=== PATIENT | female | born 1995 | race African-American/Black ===

== ENCOUNTER 2016-07-19 11:06 | Emergency (ER) | payer MEDICARE ==
[~2016-07-19] VITALS: Ht 165.1 cm; Wt 77.2 kg
[~2016-07-19 11:06] MED LIST: CALC-1232 GT; FERR-43 PO; PREN-88 PO
[2016-07-19 11:18] VITALS: BP 99/67
[2016-07-19] MEDS ORDERED: CEPH500T PO (11:18)
[2016-07-19] MEDS ORDERED: SULF1TAB47 PO (11:18)
== END 2016-07-19 12:08 | disposition home or self-care (01) ==
LOC: ER 11:48
DX: L02.411 Cutaneous abscess of right axilla (principal); M79.661 Pain in right lower leg; R03.0 Elevated blood-pressure reading, without diagnosis of hypertension; F17.210 Nicotine dependence, cigarettes, uncomplicated
CPT/HCPCS: 99283

== ENCOUNTER 2016-07-28 17:11 | Emergency (ER) | payer MEDICARE ==
[~2016-07-28] VITALS: Ht 165.1 cm; Wt 82.0 kg
[~2016-07-28 17:11] MED LIST changes: -CALC-1232 GT; +CEPH500T PO; -FERR-43 PO; -PREN-88 PO; +SULF1TAB47 PO
[2016-07-28 17:28] VITALS: BP 134/80
== END 2016-07-28 22:56 | disposition left against medical advice (07) ==
LOC: ER 22:49
DX: L02.415 Cutaneous abscess of right lower limb (principal); Z53.21 Procedure and treatment not carried out due to patient leaving prior to being seen by health care provider

== ENCOUNTER 2016-12-25 04:43 | Emergency (ER) | payer MEDICARE ==
[~2016-12-25] VITALS: Ht 165.1 cm; Wt 82.0 kg
[2016-12-25 08:44] LABS: CLARITY URINE CLOUDY (CLEAR); COLOR URINE YELLOW (YELLOW); GLUCOSE URINE NEGATIVE (NEGATIVE); KETONES URINE NEGATIVE (NEGATIVE); LEUKOCYTE ESTERASE URINE NEGATIVE (NEGATIVE); NITRITE URINE NEGATIVE (NEGATIVE); OCCULT BLOOD URINE NEGATIVE (NEGATIVE); PH URINE 6.5 (4.5-8.0); PROTEIN URINE NEGATIVE (NEGATIVE); SPECIFIC GRAVITY URINE 1.025 (1.005-1.030)
[2016-12-25 09:04] LABS: BASOPHILS % 0.6 % (0.0-2.0); EOSINOPHILS % 2.2 % (0.0-5.0); HEMATOCRIT. 35.2 % (36.0-48.0); HEMOGLOBIN. 11.8 g/dL (12.0-16.0); LYMPHOCYTES % 25.7 % (20.0-50.0); MEAN CORPUSCULAR HEMOGLOBIN 30.1 pg (28.0-32.0); MEAN CORPUSCULAR VOLUME 89.6 fL (81.0-99.0); MEAN PLATELET VOLUME 6.8 fl (7.4-10.4); NEUTROPHILS % 64.5 % (40.0-76.0); PLATELET 367 x1000/uL (130-400); RED BLOOD CELL COUNT 3.92 mill/uL (4.2-5.4); RED CELL DISTRIBUTION WIDTH 12.7 % (11.6-14.6)
[2016-12-25 09:12] LABS: CHLORIDE 103 mEq/L (98-107)
[2016-12-25 09:21] LABS: CARBON DIOXIDE 25 mEq/L (21-32)
[2016-12-25 09:39] LABS: B-HCG QUANTITATIVE 28510 mIU/mL (<3)
[2016-12-25 10:58] VITALS: BP 120/85
== END 2016-12-25 11:01 | disposition home or self-care (01) ==
LOC: ER 04:43
DX: O26.891 Other specified pregnancy related conditions, first trimester (principal); Z3A.01 Less than 8 weeks gestation of pregnancy; R10.2 Pelvic and perineal pain; R03.0 Elevated blood-pressure reading, without diagnosis of hypertension
CPT/HCPCS: 36415; 76801; 76817; 80048; 81001; 81025; 84702; 85025; 99285; Z7610

== ENCOUNTER 2017-10-20 10:24 | Emergency (ER) | payer MEDICAID, MEDICARE ==
[~2017-10-20] VITALS: Ht 167.6 cm; Wt 96.0 kg
[2017-10-20 11:37] VITALS: BP 129/72
== END 2017-10-20 11:37 | disposition home or self-care (01) ==
LOC: ER 10:43
DX: S40.862A Insect bite (nonvenomous) of left upper arm, initial encounter (principal); S40.861A Insect bite (nonvenomous) of right upper arm, initial encounter; S80.861A Insect bite (nonvenomous), right lower leg, initial encounter; L03.115 Cellulitis of right lower limb; L03.114 Cellulitis of left upper limb; L03.113 Cellulitis of right upper limb; J45.909 Unspecified asthma, uncomplicated; F17.200 Nicotine dependence, unspecified, uncomplicated; W57.XXXA Bitten or stung by nonvenomous insect and other nonvenomous arthropods, initial encounter; Y93.89 Activity, other specified; Y92.89 Other specified places as the place of occurrence of the external cause; Y99.8 Other external cause status
CPT/HCPCS: 99283; Z7610

== ENCOUNTER 2017-10-30 20:49 | Emergency (ER) | payer MEDICAID ==
[~2017-10-30] VITALS: Ht 167.6 cm; Wt 95.0 kg
[2017-10-31] MEDS ORDERED: IBUPROFEN 600MG TABLET PO ONE (01:30)
[2017-10-31 02:44] VITALS: BP 124/71
== END 2017-10-31 02:44 | disposition home or self-care (01) ==
LOC: ER 20:49
DX: J06.9 Acute upper respiratory infection, unspecified (principal); J45.909 Unspecified asthma, uncomplicated; F17.200 Nicotine dependence, unspecified, uncomplicated
CPT/HCPCS: 87070; 87430; 99284

== ENCOUNTER 2021-04-25 11:18 | Emergency (ER) | payer SELFPAY ==
[~2021-04-25] VITALS: Ht 167.6 cm; Wt 76.0 kg
[2021-04-25 11:26] VITALS: BP 142/79
[2021-04-25 14:37] LABS: CLARITY URINE CLOUDY (CLEAR); COLOR URINE YELLOW (YELLOW); KETONES URINE NEGATIVE (NEGATIVE); LEUKOCYTE ESTERASE URINE 1+ (NEGATIVE); NITRITE URINE NEGATIVE (NEGATIVE); OCCULT BLOOD URINE 3+ (NEGATIVE); PH URINE 5.5 (4.5-8.0); PROTEIN URINE 1+ (NEGATIVE); SPECIFIC GRAVITY URINE 1.018 (1.005-1.030); UROBILINOGEN URINE 0.2 E.U./dL (0.2-1.0)
[2021-04-25 16:59] LABS: BASOPHILS % 0.6 % (0.0-2.0); EOSINOPHILS % 1.7 % (0.0-5.0); HEMATOCRIT. 39.8 % (36.0-48.0); HEMOGLOBIN. 13.3 g/dL (12.0-16.0); LYMPHOCYTES % 31.2 % (20.0-50.0); MEAN CORPUSCULAR HEMOGLOBIN 30.6 pg (28.0-32.0); MEAN CORPUSCULAR VOLUME 91.6 fL (81.0-99.0); MEAN PLATELET VOLUME 6.9 fl (7.4-10.4); MONOCYTES % 5.3 % (2.0-8.0); NEUTROPHILS % 61.2 % (40.0-76.0); PLATELET 398 x1000/uL (130-400); RED BLOOD CELL COUNT 4.34 mill/uL (4.2-5.4); RED CELL DISTRIBUTION WIDTH 12.4 % (11.6-14.6)
[2021-04-25 17:05] LABS: CHLORIDE 105 mEq/L (98-107)
[2021-04-25 17:15] LABS: B-HCG QUANTITATIVE < 1 mIU/mL (<3)
[2021-04-25] MEDS ORDERED: CEPH500T MT (17:34)
== END 2021-04-25 18:05 | disposition left against medical advice (07) ==
LOC: ER 11:18
DX: N93.8 Other specified abnormal uterine and vaginal bleeding (principal); N39.0 Urinary tract infection, site not specified; J45.909 Unspecified asthma, uncomplicated
CPT/HCPCS: 36415; 80048; 81003; 81025; 84702; 85025; 99283

== ENCOUNTER 2022-06-17 14:04 | Emergency (ER) | payer MEDICAID, OTHER ==
[~2022-06-17] VITALS: Ht 165.1 cm; Wt 92.0 kg
[~2022-06-17 14:04] MED LIST changes: +CEPH500T MT
[2022-06-17 14:07] VITALS: BP 136/79
== END 2022-06-17 16:48 | disposition home or self-care (01) ==
LOC: ER 14:04
DX: M25.531 Pain in right wrist (principal); J45.909 Unspecified asthma, uncomplicated
CPT/HCPCS: 73110; 99283